=== PATIENT | female | born 1965 | race Caucasian/White ===

== ENCOUNTER 2017-11-22 13:01 | Emergency (ER) | payer BC ==
[2017-11-22 13:31] VITALS: BP 129/78
[2017-11-22] MEDS ORDERED: Cyclobenzaprine 10 MG Tab PO ONE (13:57)
[2017-11-22] MEDS ORDERED: Ketorolac 30 MG/ML SDV IM ONE (13:57)
--- NOTE | 2017-11-22 13:59 | EDM.PDOC ---
ED HPI GENERAL MEDICAL PROBLEM - General Chief Complaint: Back Pain or Injury Stated Complaint: RT HIP & BACK PAIN Time Seen by Provider: 11/22/17 13:45 Source of Information: Reports: Patient, RN Notes Reviewed History Limitations: Reports: No Limitations - History of Present Illness INITIAL COMMENTS - FREE TEXT/NARRATIVE: 52-year-old female presents emergency department today with a complaint of low back pain, she states she has had problems with her low back in the past she believes this was aggravated by sitting for long periods of time without movement, usually uses healthcare analyst however she is experiencing muscle spasms and not getting any relief. No fevers no loss of bowel or bladder Lower Back Pain Score (Numeric/FACES): 10 - Related Data Allergies Allergy/AdvReac Type Severity Reaction Status Date / Time No Known Allergies Allergy Verified 11/22/17 13:46 Home Meds: Home Meds Multivitamin [Multi Vitamin Daily] 1 tab PO DAILY 04/19/13 [History] Cyclobenzaprine [Flexeril] 10 mg PO TID PRN #15 tablet 11/22/17 [Rx] Past Medical History Oncologic (Cancer) History: Reports: Basal Cell Carcinoma, Squamous Cell Carcinoma - Infectious Disease History Infectious Disease History: Reports: Chicken Pox - Past Surgical History Other HEENT Surgeries/Procedures: tonsilitis Other Female Surgeries/Procedures: larg fibroids hysterectomy scheduled Other Musculoskeletal Surgeries/Procedures:: collar bone fracture Social & Family History - Tobacco Use Smoking Status *Q: Never Smoker - Caffeine Use Caffeine Use: Reports: Soda - Recreational Drug Use Recreational Drug Use: No ED ROS GENERAL - Review of Systems Review Of Systems: See Below Constitutional: Reports: No Symptoms GI/Abdominal: Reports: No Symptoms Musculoskeletal: Reports: Back Pain Neurological: Reports: No Symptoms ED EXAM,LOWER BACK PAIN/INJURY - Physical Exam Exam: See Below Text/Narrative:: Examination of the low back there is some point tenderness paraspinally on the right side no spinal tenderness patellar reflex is 2+ bilaterally straight leg test and cross leg test are both negative Exam Limited By: No Limitations General Appearance: Alert, Mild Distress Respiratory/Chest: No Respiratory Distress Course - Vital Signs Last Recorded V/S: Last Vital Signs Temp 99.0 F 11/22/17 13:44 Pulse 72 11/22/17 13:44 Resp 18 11/22/17 13:44 BP 129/78 11/22/17 13:44 Pulse Ox 99 11/22/17 13:44 - Orders/Labs/Meds Meds: Medications Discontinued Medications Generic Name Dose Route Start Last Admin Trade Name Deangelo PRN Reason Stop Dose Admin Cyclobenzaprine HCl 10 mg 11/22/17 13:57 11/22/17 14:08 Flexeril PO 11/22/17 13:58 10 mg ONETIME ONE Administration Ketorolac Tromethamine 30 mg 11/22/17 13:57 11/22/17 14:09 Toradol IM 11/22/17 13:58 30 mg ONETIME ONE Administration Departure - Departure Time of Disposition: 14:57 Disposition: Home, Self-Care 01 Condition: Good Clinical Impression: Back pain Qualifiers: Back pain location: low back pain Chronicity: acute Back pain laterality: right Sciatica presence: without sciatica Qualified Code(s): M54.5 - Low back pain - Discharge Information Prescriptions: Cyclobenzaprine [Flexeril] 10 mg PO TID PRN #15 tablet PRN Reason: Spasms Referrals: PCP,None [Primary Care Provider] - Forms: ED Department Discharge Additional Instructions: Continue to use ibuprofen or Tylenol for pain control, use Flexeril as needed for muscle relaxant, Please followup with your primary care provider in 3-5 days if not better, please call return to the emergency department with worsening of symptoms. Recommend discussion of physical therapy consultation - Assessment/Plan Plan: Assessment Acuity = acute Site and laterality = low back pain with muscle spasm Etiology = secondary to prolonged sitting Manifestations = none Location of injury = Home Lab values = none Plan Prescription written for Flexeril 10 mg by mouth 3 times a day when necessary total #15 her follow-up with primary care in 3-5 days for reevaluation This note was dictated using [employer] recognition software please call with any questions on syntax or grammar.
== END 2017-11-22 15:08 | disposition home or self-care (01) ==
LOC: JP.ED 13:01
DX: M54.5 Low back pain (principal)
CPT/HCPCS: 96372; 99283; A9270; J1885

== ENCOUNTER 2019-01-30 08:13 | Emergency (ER) | payer BC ==
[2019-01-30 08:27] VITALS: BP 96/61; PULSE 64
--- NOTE | 2019-01-30 08:51 | EDM.PDOC ---
ED HPI GENERAL MEDICAL PROBLEM - General Chief Complaint: Skin Complaint Stated Complaint: POSSIBLE SHINGLES Time Seen by Provider: 01/30/19 08:43 Source of Information: Reports: Patient History Limitations: Reports: No Limitations - History of Present Illness INITIAL COMMENTS - FREE TEXT/NARRATIVE: 53-year-old female with a rash on the right side of her thorax over the past 2- 3 days. It is painful and irritating. It started after she "pulled the skin take off" about a week ago. No fevers or chills, she does not feel ill. No shortness of breath or cough. Onset: Gradual Duration: Day(s): (3-4 days) Location: Reports: Chest (Right lateral chest and flank) Left Chest Pain Score (Numeric/FACES): 2 - Related Data Allergies Allergy/AdvReac Type Severity Reaction Status Date / Time No Known Allergies Allergy Verified 01/30/19 08:27 Home Meds: Home Meds Multivitamin [Multi Vitamin Daily] 1 tab PO DAILY 04/19/13 [History] Past Medical History Oncologic (Cancer) History: Reports: Basal Cell Carcinoma, Squamous Cell Carcinoma - Infectious Disease History Infectious Disease History: Reports: Chicken Pox - Past Surgical History Other HEENT Surgeries/Procedures: tonsilitis Female Surgical History: Reports: Hysterectomy Other Musculoskeletal Surgeries/Procedures:: collar bone fracture Social & Family History - Tobacco Use Smoking Status *Q: Never Smoker Second Hand Smoke Exposure: No - Caffeine Use Caffeine Use: Reports: Soda - Alcohol Use Days Per Week of Alcohol Use: 4 Number of Drinks Per Day: 3 Total Drinks Per Week: 12 - Recreational Drug Use Recreational Drug Use: No ED ROS GENERAL - Review of Systems Review Of Systems: See Below Constitutional: Denies: Fever, Chills Respiratory: Denies: Shortness of Breath, Cough Cardiovascular: Reports: Chest Pain (Only over the area of the rash) GI/Abdominal: Denies: Nausea, Vomiting Skin: Reports: Other (Small erythematous blisters on the right flank and chest) Neurological: Denies: Paresthesia ED EXAM, SKIN/RASH Exam: See Below Exam Limited By: No Limitations General Appearance: Alert, No Apparent Distress Respiratory/Chest: No Respiratory Distress Cardiovascular: Regular Rate, Rhythm Skin: Other (On the right back, right flank, and right anterior chest under the breast there are several small erythematous papular and blistering lesions fairly typical of shingles) Course - Vital Signs Last Recorded V/S: Last Vital Signs Temp 96.2 F 01/30/19 08:32 Pulse 64 01/30/19 08:32 Resp 16 01/30/19 08:32 BP 96/61 01/30/19 08:32 Pulse Ox 96 01/30/19 08:32 - Re-Assessments/Exams Free Text/Narrative Re-Assessment/Exam: 01/30/19 09:03 Patient will be treated with Famvir 500 mg 3 times a day for 7 days. An anti- inflammatory may be helpful as well. Departure - Departure Time of Disposition: 08:58 Disposition: Home, Self-Care 01 Clinical Impression: Shingles Qualifiers: Herpes zoster complications: without complications Qualified Code(s): B02.9 - Zoster without complications - Discharge Information Instructions: Shingles, [id number] Referrals: Shasta Andrade CLOSING SUPERVISOR [Primary Care Provider] - Forms: ED Department Discharge Care Plan Goals: Take antiviral medication 3 times a day for 7 days. Anti-inflammatories such as ibuprofen or Aleve may be helpful as well.
== END 2019-01-30 08:57 | disposition home or self-care (01) ==
LOC: JP.ED 08:13
DX: B02.9 Zoster without complications (principal)
CPT/HCPCS: 99282

== ENCOUNTER 2024-04-19 06:20 | Day surgery (SDC) | payer BC ==
[2024-04-19] MEDS ORDERED: fentaNYL 50 MCG/ML SDV ONE (07:01)
[2024-04-19] MEDS ORDERED: Midazolam 1 MG/ML 2 ML SDV ONE (07:01)
[2024-04-19] MEDS ORDERED: Propofol 200 MG/20 ML SDV ONE (07:01)
[2024-04-19] MEDS: Lactated Ringers 1,000 ML IV SCH (07:06)
[2024-04-19 08:47] VITALS: BP 116/70; PULSE 57
== END 2024-04-19 09:10 | disposition home or self-care (01) ==
LOC: JP.SDS 06:20
PROVIDERS: ATTEND Surgery
DX: Z12.11 Encounter for screening for malignant neoplasm of colon (principal); K57.30 Diverticulosis of large intestine without perforation or abscess without bleeding; Z80.0 Family history of malignant neoplasm of digestive organs
CPT/HCPCS: 00812-QZ; J2250; J2704; J3010; J7120